=== PATIENT | male | born 1985 | race Caucasian/White ===

== ENCOUNTER 2022-12-03 10:47 | Emergency (ER) | payer BC ==
[2022-12-03 12:00] LABS: BASOPHILS ABSOLUTE AUTO 0.08 K/mm3 (0.01-0.08); BASOPHILS PERCENT AUTO 0.4 % (0.1-1.2); EOSINOPHILS ABSOLUTE AUTO 0.22 K/mm3 (0.04-0.54); EOSINOPHILS PERCENT AUTO 1.2 (0.8-7.0); HEMATOCRIT 38.5 % (40.1-51.0); HEMOGLOBIN 12.8 gm/dl (13.7-17.5); IMMATURE GRAN ABSOLUTE AUTO 0.49 K/mm3 (0.00-0.10); IMMATURE GRAN PERCENT AUTO 2.7 % (<=1.0); LYMPHOCYTES ABSOLUTE AUTO 2.89 K/mm3 (1.32-3.57); MEAN CORPUSCULAR HEMOGLOBIN 29.9 pg (25.7-32.2); MEAN CORPUSCULAR HGB CONC 33.2 g/dl (32.2-35.5); MEAN PLATELET VOLUME 9.4 fl (9.4-12.3); MONOCYTES ABSOLUTE AUTO 1.55 K/mm3 (0.30-0.82); MONOCYTES PERCENT AUTO 8.6 % (5.3-12.2); NEUTROPHILS PERCENT AUTO 71.1 % (34.0-67.9); PLATELET COUNT,PLT 455 K/mm3 (163-337); RED BLOOD CELL COUNT 4.28 M/mm3 (4.63-6.08); WHITE BLOOD CELL COUNT,WBC 18.03 K/mm3 (4.23-9.07)
[2022-12-03 12:17] LABS: LACTIC ACID 0.7 mmol/L (0.4-2.0)
[2022-12-03 12:23] LABS: A/G RATIO 0.6 (1-2); ALANINE AMINOTRANSFERASE,ALT 56 U/L (16-63); ALBUMIN 2.8 g/dl (3.4-5.0); ALKALINE PHOSPHATASE 95 U/L (46-116); ANION GAP 9.9 (5-15); ASPARTATE AMNIOTRANSFERASE,AST 22 U/L (15-37); BILIRUBIN TOTAL 0.3 mg/dL (0.2-1.0); BLOOD UREA NITROGEN,BUN 14 mg/dL (7-18); BUN/CREATININE RATIO 11.7 (14-18); CALCIUM 8.6 mg/dL (8.5-10.1); CARBON DIOXIDE,CO2 29 mEq/L (21-32); CHLORIDE,CL 103 mEq/L (98-107); CREATININE 1.2 mg/dL (0.7-1.3); ESTIMATED GFR 79 mL/min (>60); GLUCOSE RANDOM 116 mg/dL (70-99); POTASSIUM,K 3.9 mEq/L (3.5-5.1); PROTEIN TOTAL,TP 7.7 g/dl (6.4-8.2); SODIUM,NA 138 mEq/L (136-145)
[2022-12-03 13:27] LABS: SLIDE REVIEW ABNORMAL SMEAR
== END 2022-12-03 13:10 | disposition home or self-care (01) ==
LOC: JD.ED 10:47
DX: M70.41 Prepatellar bursitis, right knee (principal); F17.210 Nicotine dependence, cigarettes, uncomplicated
CPT/HCPCS: 36415; 73700-26-RT; 73700-RT; 80053; 83605; 85025; 86140; 99283; 99284

== ENCOUNTER 2023-11-13 14:58 | Observation (INO) | payer BC ==
[2023-11-13] MEDS: Albuterol/Ipratropium 3.0-0.5 MG/3 ML Neb Soln NEB ONE (15:36)
[2023-11-13] MEDS: methylPREDNISolone Sodium Succinate 125 MG/2 ML SDV IVPUSH ONE (15:39)
[2023-11-13 15:47] LABS: BASE EXCESS ARTERIAL -5.7 (-2-2.0); BICARBONATE,ARTERIAL 19.5 meq/L (22.0-26.0); O2 SATURATION ARTERIAL 97.6 % (96.0-97.0)
[2023-11-13 15:59] LABS: BASOPHILS ABSOLUTE AUTO 0.1 K/mm3 (0.0-0.2); BASOPHILS PERCENT AUTO 0.7 % (0.0-1.0); EOSINOPHILS ABSOLUTE AUTO 0.4 K/mm3 (0.0-0.4); EOSINOPHILS PERCENT AUTO 2.9 % (0.0-6.0); HEMATOCRIT 45.8 % (42.0-52.0); HEMOGLOBIN 15.8 gm/dl (14.0-18.0); IMMATURE GRAN ABSOLUTE AUTO 0.19 K/mm3 (0.00-0.05); IMMATURE GRAN PERCENT AUTO 1.3 % (0.0-0.4); LYMPHOCYTES ABSOLUTE AUTO 5.6 K/mm3 (1.0-4.8); MEAN CORPUSCULAR HEMOGLOBIN 30.2 pg (28.0-32.0); MEAN CORPUSCULAR HGB CONC 34.5 g/dl (32.0-36.0); MEAN CORPUSCULAR VOLUME 87.6 fl (83.0-99.0); MEAN PLATELET VOLUME 10.5 fl (9.4-12.4); MONOCYTES ABSOLUTE AUTO 1.1 K/mm3 (0.0-0.8); MONOCYTES PERCENT AUTO 7.1 % (0.0-8.0); NEUTROPHILS ABSOLUTE AUTO 7.7 K/mm3 (1.8-7.7); PLATELET COUNT,PLT 294 K/mm3 (150-400); RED BLOOD CELL COUNT 5.23 M/mm3 (4.52-5.90); WHITE BLOOD CELL COUNT,WBC 15.04 K/mm3 (3.9-11.3)
[2023-11-13 16:42] LABS: A/G RATIO 1.1 (1-2); ALBUMIN 3.9 g/dl (3.4-5.0); ANION GAP 17.8 (5-15); BILIRUBIN TOTAL 0.4 mg/dL (0.2-1.0); BUN/CREATININE RATIO 11.3 (14-18); CREATININE 1.5 mg/dL (0.7-1.3); EST CRCL DRUG DOSING (CG) 61.2 mL/min; POTASSIUM,K 3.8 mEq/L (3.5-5.1); PROTEIN TOTAL,TP 7.4 g/dl (6.4-8.2)
[2023-11-13 16:48] LABS: SLIDE REVIEW ABNORMAL SMEAR
[2023-11-13 16:55] LABS: LACTIC ACID 1.2 mmol/L (0.4-2.0)
[2023-11-13] MEDS ORDERED: Ondansetron 4 MG Tab.DIS PO PRN (18:27)
[2023-11-13] MEDS ORDERED: Acetaminophen 325 MG Tab PO PRN (18:27)
[2023-11-13] MEDS ORDERED: Sodium Chloride 0.9% 1,000 ML IV SCH (19:00)
[2023-11-13] MEDS: Sodium Chloride 0.9% 1,000 ML IV ONE (19:16)
[2023-11-13] MEDS: Albuterol/Ipratropium 3.0-0.5 MG/3 ML Neb Soln NEB SCH (20:11)
[2023-11-13] MEDS: Lactated Ringers 1,000 ML IV SCH (21:05)
[2023-11-14] MEDS: Citalopram 20 MG Tab PO SCH (00:59)
[2023-11-14 06:20] LABS: ANION GAP 17.3 (5-15); BUN/CREATININE RATIO 16.7 (14-18); CALCIUM 8.8 mg/dL (8.5-10.1); CREATININE 1.2 mg/dL (0.7-1.3); EST CRCL DRUG DOSING (CG) 76.5 mL/min; POTASSIUM,K 4.3 mEq/L (3.5-5.1)
[2023-11-14 08:18] LABS: BASOPHILS PERCENT AUTO 0.2 % (0.0-1.0); EOSINOPHILS PERCENT AUTO 0.1 % (0.0-6.0); HEMATOCRIT 39.7 % (42.0-52.0); IMMATURE GRAN ABSOLUTE AUTO 0.09 K/mm3 (0.00-0.05); IMMATURE GRAN PERCENT AUTO 0.6 % (0.0-0.4); LYMPHOCYTES ABSOLUTE AUTO 1.4 K/mm3 (1.0-4.8); LYMPHOCYTES PERCENT AUTO 8.5 % (24.0-44.0); MEAN CORPUSCULAR HEMOGLOBIN 30.3 pg (28.0-32.0); MEAN PLATELET VOLUME 10.8 fl (9.4-12.4); MONOCYTES ABSOLUTE AUTO 0.5 K/mm3 (0.0-0.8); MONOCYTES PERCENT AUTO 3.4 % (0.0-8.0); NEUTROPHILS ABSOLUTE AUTO 13.9 K/mm3 (1.8-7.7); NEUTROPHILS PERCENT AUTO 87.2 % (41.0-71.0); PLATELET COUNT,PLT 227 K/mm3 (150-400); RED BLOOD CELL COUNT 4.46 M/mm3 (4.52-5.90); WHITE BLOOD CELL COUNT,WBC 15.91 K/mm3 (3.9-11.3)
[2023-11-14 08:19] LABS: HEMOGLOBIN 13.5 gm/dl (14.0-18.0)
== END 2023-11-14 08:28 | disposition home or self-care (01) ==
LOC: JD.ED 14:58 → JD.MS 17:17
PROVIDERS: ADMIT Family Medicine; ATTEND Family Medicine
DX: J68.9 Unspecified respiratory condition due to chemicals, gases, fumes and vapors (principal); N17.9 Acute kidney failure, unspecified; E87.0 Hyperosmolality and hypernatremia; E87.8 Other disorders of electrolyte and fluid balance, not elsewhere classified; F32.A Depression, unspecified; F41.9 Anxiety disorder, unspecified; F17.200 Nicotine dependence, unspecified, uncomplicated
CPT/HCPCS: 36415; 36600; 71046; 80048; 80053; 82803; 83605; 83735; 84484; 85025; 93005; 94640; 94761; 96361; 96374; 99285; G0378; J2919; J7030; J7120; J7620-GY

== ENCOUNTER 2024-05-23 16:53 | Emergency (ER) | payer BC ==
[2024-05-23] MEDS: Sodium Chloride 0.9% 1,000 ML IV ONE (18:02)
[2024-05-23 18:06] LABS: BASOPHILS PERCENT AUTO 0.1 % (0.0-1.0); EOSINOPHILS ABSOLUTE AUTO 0.1 K/mm3 (0.0-0.4); EOSINOPHILS PERCENT AUTO 1.1 % (0.0-6.0); HEMATOCRIT 47.1 % (42.0-52.0); IMMATURE GRAN ABSOLUTE AUTO 0.08 K/mm3 (0.00-0.05); IMMATURE GRAN PERCENT AUTO 0.7 % (0.0-0.4); LYMPHOCYTES ABSOLUTE AUTO 2.1 K/mm3 (1.0-4.8); LYMPHOCYTES PERCENT AUTO 18.3 % (24.0-44.0); MEAN CORPUSCULAR HEMOGLOBIN 29.9 pg (28.0-32.0); MEAN CORPUSCULAR VOLUME 87.9 fl (83.0-99.0); MEAN PLATELET VOLUME 9.9 fl (9.4-12.4); MONOCYTES ABSOLUTE AUTO 0.4 K/mm3 (0.0-0.8); MONOCYTES PERCENT AUTO 3.9 % (0.0-8.0); NEUTROPHILS ABSOLUTE AUTO 8.6 K/mm3 (1.8-7.7); NEUTROPHILS PERCENT AUTO 75.9 % (41.0-71.0); PLATELET COUNT,PLT 255 K/mm3 (150-400); RED BLOOD CELL COUNT 5.36 M/mm3 (4.52-5.90); WHITE BLOOD CELL COUNT,WBC 11.34 K/mm3 (3.9-11.3)
[2024-05-23 18:42] LABS: A/G RATIO 1.1 (1-2); ANION GAP 12.1 (5-15); BILIRUBIN TOTAL 0.2 mg/dL (0.2-1.0); BUN/CREATININE RATIO 14.2 (14-18); CALCIUM 8.9 mg/dL (8.5-10.1); CREATININE 1.2 mg/dL (0.7-1.3); EST CRCL DRUG DOSING (CG) 75.74 mL/min; POTASSIUM,K 4.1 mEq/L (3.5-5.1); PROTEIN TOTAL,TP 7.8 g/dl (6.4-8.2)
[2024-05-23] MEDS: Ketorolac 30 MG/ML SDV IVPUSH ONE (18:59)
[2024-05-23] MEDS: Labetalol 100 MG/20 ML MDV IVPUSH ONE (19:28)
[2024-05-23] MEDS: Acetaminophen 325 MG Tab PO ONE (19:35)
[2024-05-23] MEDS: Acetaminophen 325 MG Tab ONE (19:41)
[2024-05-23] MEDS: Benzonatate 100 MG Cap PO ONE (21:24)
== END 2024-05-23 21:30 | disposition home or self-care (01) ==
LOC: JD.ED 16:53
DX: J06.9 Acute upper respiratory infection, unspecified (principal); Z79.899 Other long term (current) drug therapy
CPT/HCPCS: 36415; 71045; 80053; 84484; 85025; 87428; 93005; 96361; 96374; 96375; 99284; A9270; J1885; J1920; J7030; 93010

== ENCOUNTER 2024-05-25 09:05 | Inpatient (IN) | payer BC ==
[2024-05-25] MEDS ORDERED: Sodium Chloride 0.9% 10 ML Syringe FLUSH PRN (10:20)
[2024-05-25 11:12] LABS: BASOPHILS ABSOLUTE AUTO 0.1 K/mm3 (0.0-0.2); BASOPHILS PERCENT AUTO 0.4 % (0.0-1.0); EOSINOPHILS ABSOLUTE AUTO 0.2 K/mm3 (0.0-0.4); EOSINOPHILS PERCENT AUTO 1.8 % (0.0-6.0); HEMATOCRIT 40.5 % (42.0-52.0); IMMATURE GRAN ABSOLUTE AUTO 0.09 K/mm3 (0.00-0.05); IMMATURE GRAN PERCENT AUTO 0.8 % (0.0-0.4); LYMPHOCYTES ABSOLUTE AUTO 2.6 K/mm3 (1.0-4.8); LYMPHOCYTES PERCENT AUTO 23.2 % (24.0-44.0); MEAN CORPUSCULAR HEMOGLOBIN 29.5 pg (28.0-32.0); MEAN CORPUSCULAR HGB CONC 33.3 g/dl (32.0-36.0); MEAN CORPUSCULAR VOLUME 88.6 fl (83.0-99.0); MEAN PLATELET VOLUME 10.1 fl (9.4-12.4); MONOCYTES ABSOLUTE AUTO 1.2 K/mm3 (0.0-0.8); MONOCYTES PERCENT AUTO 10.2 % (0.0-8.0); NEUTROPHILS ABSOLUTE AUTO 7.1 K/mm3 (1.8-7.7); NEUTROPHILS PERCENT AUTO 63.6 % (41.0-71.0); PLATELET COUNT,PLT 212 K/mm3 (150-400); RED BLOOD CELL COUNT 4.57 M/mm3 (4.52-5.90); WHITE BLOOD CELL COUNT,WBC 11.22 K/mm3 (3.9-11.3)
[2024-05-25 11:14] LABS: HEMOGLOBIN 13.5 gm/dl (14.0-18.0)
[2024-05-25 11:43] LABS: A/G RATIO 0.9 (1-2); ALBUMIN 3.3 g/dl (3.4-5.0); ANION GAP 12.1 (5-15); BILIRUBIN TOTAL 0.5 mg/dL (0.2-1.0); BUN/CREATININE RATIO 13.1 (14-18); CALCIUM 8.3 mg/dL (8.5-10.1); CREATININE 1.3 mg/dL (0.7-1.3); EST CRCL DRUG DOSING (CG) 69.91 mL/min; MAGNESIUM 1.8 mg/dL (1.8-2.4); POTASSIUM,K 4.1 mEq/L (3.5-5.1); PROTEIN TOTAL,TP 6.9 g/dl (6.4-8.2)
[2024-05-25] MEDS ORDERED: Polyethylene Glycol 3350 Powder 17 GM Packet PO PRN (13:51)
[2024-05-25] MEDS ORDERED: Ondansetron 4 MG/2 ML SDV IV PRN (13:51)
[2024-05-25] MEDS ORDERED: Ondansetron 4 MG Tab.DIS PO PRN (13:51)
[2024-05-25] MEDS ORDERED: Albuterol/Ipratropium 3.0-0.5 MG/3 ML Neb Soln NEB PRN (13:51)
[2024-05-25] MEDS ORDERED: Benzonatate 100 MG Cap PO PRN (13:55)
[2024-05-25] MEDS ORDERED: Azithromycin 250 MG Tab PO SCH (15:15)
[2024-05-25] MEDS: Albuterol/Ipratropium 3.0-0.5 MG/3 ML Neb Soln NEB SCH (15:39)
[2024-05-25] MEDS: Codeine/guaiFENesin 10-100 MG/5 ML Syrup 5 ML Cup PO SCH (16:00)
[2024-05-25] MEDS: predniSONE 20 MG Tab PO ONE (16:00)
[2024-05-25] MEDS: Enoxaparin 40 MG/0.4 ML Syringe SUBCUT SCH (16:00)
[2024-05-25] MEDS: Nicotine 21 MG/24 Hr Patch TRDERM SCH (16:00)
[2024-05-25] MEDS: Azithromycin 250 MG Tab PO SCH (16:00)
[2024-05-25] MEDS: Acetaminophen 325 MG Tab PO PRN (16:07)
[2024-05-25 16:17] LABS: CORONAVIRUS COVID-19 NAA NEGATIVE (NEGATIVE); INFLUENZA A NAA NEGATIVE (NEGATIVE); RESPIRATORY SYNCYTIAL VIR NAA NEGATIVE (NEGATIVE)
[2024-05-25] MEDS: ESCITALOPRAM 20 MG PO SCH (19:59)
[2024-05-25] MEDS ORDERED: Citalopram 20 MG Tab PO SCH (21:00)
[2024-05-26 04:41] LABS: BASOPHILS PERCENT AUTO 0.4 % (0.0-1.0); EOSINOPHILS ABSOLUTE AUTO 0.1 K/mm3 (0.0-0.4); EOSINOPHILS PERCENT AUTO 0.5 % (0.0-6.0); HEMATOCRIT 38.4 % (42.0-52.0); HEMOGLOBIN 12.9 gm/dl (14.0-18.0); IMMATURE GRAN ABSOLUTE AUTO 0.11 K/mm3 (0.00-0.05); IMMATURE GRAN PERCENT AUTO 1.2 % (0.0-0.4); LYMPHOCYTES ABSOLUTE AUTO 3.2 K/mm3 (1.0-4.8); LYMPHOCYTES PERCENT AUTO 33.7 % (24.0-44.0); MEAN CORPUSCULAR HEMOGLOBIN 29.2 pg (28.0-32.0); MEAN CORPUSCULAR HGB CONC 33.6 g/dl (32.0-36.0); MEAN CORPUSCULAR VOLUME 86.9 fl (83.0-99.0); NEUTROPHILS PERCENT AUTO 53.2 % (41.0-71.0); PLATELET COUNT,PLT 228 K/mm3 (150-400); RED BLOOD CELL COUNT 4.42 M/mm3 (4.52-5.90); WHITE BLOOD CELL COUNT,WBC 9.34 K/mm3 (3.9-11.3)
[2024-05-26 05:03] LABS: A/G RATIO 0.8 (1-2); ALBUMIN 3.1 g/dl (3.4-5.0); ANION GAP 13.9 (5-15); BILIRUBIN TOTAL 0.4 mg/dL (0.2-1.0); BUN/CREATININE RATIO 14.2 (14-18); C-REACTIVE PROTEIN 2.77 mg/dL (<0.30); CALCIUM 8.2 mg/dL (8.5-10.1); CREATININE 1.2 mg/dL (0.7-1.3); EST CRCL DRUG DOSING (CG) 75.74 mL/min; MAGNESIUM 2.1 mg/dL (1.8-2.4); POTASSIUM,K 3.9 mEq/L (3.5-5.1); PROTEIN TOTAL,TP 6.8 g/dl (6.4-8.2)
[2024-05-26] MEDS: predniSONE 20 MG Tab PO SCH (06:23)
[2024-05-29 04:42] LABS: B PARAPERTUSSIS, PCR Not Detected; B PERTUSSIS, PCR Not Detected; BPERT/PARAPERT SOURCE Nasopharyngeal
== END 2024-05-26 10:09 | disposition home or self-care (01) | DRG 204 ==
LOC: JD.ED 09:05 → JD.MS 12:44
PROVIDERS: ADMIT Internal Medicine; ATTEND Internal Medicine
DX: R55 Syncope and collapse (principal); J45.909 Unspecified asthma, uncomplicated; F32.A Depression, unspecified; F41.9 Anxiety disorder, unspecified; Z98.890 Other specified postprocedural states; Z72.0 Tobacco use; Z79.899 Other long term (current) drug therapy
CPT/HCPCS: 0241U; 36415; 70450; 70450-26; 71045; 71045-26; 80053; 83735; 84484; 85025; 85379; 86140; 87428-QW; 87798; 94640; 94760; 94761; 99222; 99239; 99285; A9270-GY; J1650; J7512; J7620-GY